=== PATIENT | female | born 2000 | race Two or more races ===

== ENCOUNTER 2022-09-17 11:47 | Emergency (ER) | payer OTHER ==
[~2022-09-17] VITALS: Ht 157.5 cm; Wt 68.5 kg
[2022-09-17] MEDS ORDERED: BACTRIM DS TAB1 EACH PO (15:42)
== END 2022-09-17 15:51 | disposition home or self-care (01) ==
LOC: ER 11:47
DX: L02.416 Cutaneous abscess of left lower limb (principal)